=== PATIENT | female | born 1960 | race Caucasian/White ===

== ENCOUNTER 2018-06-30 09:20 | Emergency (ER) | payer BC ==
--- OUTSIDE RECORDS SUMMARY | 2018-06-30 09:52 | XMS REPORT ---
:1960 External Reference #:[id number] [facility] Address [address], [address] [place] [address] Phone [phone] Care Team Providers Name Role Phone Jorge Vasques MD Care Team Information Blow Mold Machine Operator Unavailable Mary Euceda RPAC Primary Care Physician Unavailable Payers Type Date Identification Numbers Payment Provider Subscriber Commercial Policy Number: [id number] [employer] Erik Sanz Sanjay Group Number: [id number] [address] [address] PayID: [id number] [place] [address] Problems Date Description Provider Status Onset: 10/26/2011 Hypothyroidism Mary Euceda RPAC Active Note: ~2011 Onset: 12/26/2014 Asthma without status asthmaticus Mary Euceda RPAC Active Onset: 12/26/2014 Obesity Mary Euceda RPAC Active Onset: 12/26/2014 Allergic rhinitis Mary Euceda RPAC Active Note: Immunoprophylaxis 2017 Onset: 12/26/2014 Degenerative joint disease involving Mary Euceda RPAC Active multiple joints Note: knees, cervical spine Onset: 12/26/2014 Gastroesophageal reflux disease Mary Euceda RPAC Active Onset: 12/26/2014 Malignant neoplasm of female breast Mary Euceda RPAC Active Note: (R) 2014 Onset: 07/28/2015 Bipolar disorder Abdiel Valentino MD Active Onset: 12/01/2017 Irritable bowel syndrome Mary Euceda RPAC Active characterized by alternating bowel habit Onset: 04/02/2018 Obstructive sleep apnea syndrome Mary Euceda RPAC Active Note: auto Cpap Onset: 03/25/2017 Acute bronchitis Kaylin Marcelo M.D. Resolved Resolved: 12/01/2017 Onset: 03/25/2017 Cough Kaylin Marcelo M.D. Resolved Resolved: 12/01/2017 Onset: 03/25/2017 Exacerbation of asthma Kaylin Marcelo M.D. Resolved Resolved: 12/01/2017 Onset: 10/19/2017 Acute sinusitis Kaylin Marcelo M.D. Resolved Resolved: 12/01/2017 Family History Date Family Member(s) Problem(s) Comments Father Prostate Cancer Father Depression Mother Breast Cancer First Sister Endometriosis Social History Type Date Description Comments Education 2014 Currently working on [employer] on line for [employer] degree degree Marital Status Lives With Diet Healthy, Well Balanced Occupation Prevention Rn @ [employer] ADL's/IADL's Independent with all ADL's Cigarette Use Never Smoked Cigarettes ETOH Use Denies alcohol use Smoking Patient has never smoked Daily Caffeine Does Not Consume Caffeine Allergies, Adverse Reactions, Alerts Date Description Reaction Status Severity Comments 12/26/2014 Taxotere SWELLING/PEELING SKIN active 03/28/2016 Docetaxel active 12/26/2014 Neosporin CONTACT ALLERGY active 12/26/2014 Adhesives CONTACT ALLERGY active 04/22/2015 Dog Dander active 04/22/2015 Cat Dander active 03/25/2017 Trees active 03/25/2017 Grass active 03/25/2017 Dust active 05/30/2017 Mold active Medications Medication Date Status Form Strength Qnty SIG Indications Ordering Provider Bupropion HCL ER 11/25 Active Tablets ER 150mg 1 by mouth Unknown (XL) 24HR twice daily ( Terri Dmytryk HOTEL ADMINISTRATIVE ASSISTANT) Trintellix 08/29 Active Tablets 20mg 1 tab po daily (Terri Dmytryk HOTEL ADMINISTRATIVE ASSISTANT) Glucosamine 03/25 Active Capsules 1500Com 1 in the Davian morning 1 Andras, at night M.D. Naproxen 01/31 Active Tablets 500mg 180ta 1 By Mouth Pom bs Twice A Day Amari, With Food M.DVickie Dulera 04/29 Active Aerosol 200-5mcg/ 2 Jovon Ochoa Act inhalations istopher twice a day MD Dockery 04/29 Active Aerosol 108(90Bas 2 [facility]) inhalations istopher mcg/Act every 4 MD hours as needed Flax Seed Oil 04/09 Active Capsules 1000mg 1 by mouth Delroy, every day Rudy Smiley, DO Vitamin B 12/26 Active Tablets 1 by mouth Janeth Jarrell every day Román Hayward Vitamin C 12/26 Active Capsules 500mg one po bid Wesly Román Hayward Levothyroxine 03/20 Active Tablets 75mcg 90tab Take 1 Downing, s Tablet Russ, Daily M.DVickie Lansoprazole 11/[address] 15mg 180ca 1 po bid Wesly ps MD Yesy Probiotic Active Capsules 1 by mouth Unknown / twice daily Vitamin D3 Active Capsules 1000Unit 1 by mouth Unknown /0000 twice daily Levocetirizine Active Tablets 5mg 1 by mouth Jovon Ochoa Dihydrochloride every day istopher PRYOR Mometasone Active Suspension 50mcg/Act 2 sprays Unknown Furoate each nostril Spencer Active Tablets ER 450mg 1 cap by Unknown Carbonate ER /0000 mouth at night (Terri Dmytryk HOTEL ADMINISTRATIVE ASSISTANT) Spencer Active Capsules 300mg 1 tab by Unknown Carbonate /0000 mouth in the am Multivitamin Active Chewtabs 1 by mouth Unknown Gummies Womens /0000 every day Depakote ER 11/25 Hx Tablets ER 250mg take one 24HR pill in Zoryana evening. HOTEL ADMINISTRATIVE ASSISTANT (Terri Dmytryk HOTEL ADMINISTRATIVE ASSISTANT) Amoxicillin 10/19 Hx Tablets 875mg 20tab take 1 J01.90 Davian, s tablet by Andras, - mouth every M.D. 12/01 12 hours for 10 days Depakote ER 06/13 Hx Tablets ER 250mg 45tab take one Downing 24HR s (250mg) Russ, - pill with M.D. 12/01 depakote er 500 mg pill every other day for a total of 750 mg every other day Prednisone 03/25 Hx Tablets 20mg 10tab take 3 J20.9 Davian, s tablets on , - day 1 then M.D. 04/05 2 tablet on day 2 and 3 then 1 tablet on day 4 and 5 and a half tablet and day 6 and 7 . Doxycycline 03/25 Hx Capsules 100mg 20cap 1 cap by J20.9 Davian Monohydrate s mouth twice Andras, - a day for M.D. 04/05 10 Nabumetone 10/05 Hx Tablets 750mg 60tab take one M25.569 Pomjeniffer s tablet by Amari, - mouth twice M.D. 03/18 a day with food Mammogram Order 09/13 Hx (L) Delroy breast..... Rudy Smiley, - ..hx of (r) DO 10/05 mastectomy ........... dx: z85.3 , v76.10 Spencer 01/20 Hx Tablets ER 300mg 180ta 1 tab by Chang, Carbonate ER bs mouth twice Russ, daily M.D. Prevacid 09/[address] 15mg 90cap 1 by mouth Delroy s bid every Rudy Smiley, - day DO 03/18 Ketoconazole 09/24 Hx Cream 2% 60gm for topical B35.9 Delroy use as Rudy Smiley, - needed DO 10/07 Cephalexin 09/24 Hx Tablets 500mg 30tab 1 tab (or R05 Delroy s cap) by Rudy Smiley, - mouth three DO times a day /2015 Furosemide 09/24 Hx Tablets 40mg 5tabs 1 tab by R60.0 Delroy mouth every Rudy Smiley, - day as DO needed edema Depakote ER 06/16 Hx Tablets ER 250mg 100ta take one Delroy 24HR bs (250mg) Rudy Smiley, - pill with DO 10/07 the depakote er 500mg pill every other day for a total of 750mg every other day. Nasonex 04/29 Hx Suspension 50mcg/Act 2 sprays to Unknown (b) nares - every day 12/01 Xyzal 04/29 Hx Tablets 5mg 1 tab by mouth every - day as 03/18 needed allergies Zolpidem 04/22 Hx Tablets 5mg 30tab take one Chicho, Tartrate s pill each Tadeus - night for E., 03/28 sleep as needed Flax Seed Oil 12/26 Hx Capsules 1000mg 1 cap by Wesly, mouth every Yesy - day , M.D. 12/26 Glucosamine 12/26 Hx Tablets 2 tabs by Wesly, Chondroitin mouth every Yesy Complex day , M.D. Proair HFA 12/26 Hx Aerosol 108(90Bas 1- Wesly e) inhalations Yesy - mcg/Act every 4 , M.D. 09/ hours needed Vitamin D 12/26 Hx Tablets 1000Unit one tab po Wesly, (Cholecalciferol daily Yesy ) - , M.D. 01/20 Zinc 12/26 Hx Tablets 50mg 1 tab by Wesly, mouth every Yesy - day , M.D. 01/20 Magnesium 12/26 Hx Tablets 250mg one tab by Wesly, mouth every Yesy - day , M.D. 01/20 Multivital 12/26 Hx Tablets 1 by mouth Wesly, every day Yesy - M.DVickie 04/09 Ciclodan Cream 11/25 Hx Kit 0.77% 90uni thin layer Wesly, ts to foot Yesy - lesions , 12/26 twice a day /2014 Zyban 04/08 Hx Tablets ER 150mg 60tab take 1 Wesly 12HR s tablet by Yesy - mouth twice , 12/26 a day /2014 Ventolin HFA 03/26 Hx Aerosol 108mcg/Ac 1unit 1-2 Wesly t s inhalations Yesy - every 4 , 12/26 hours needed Dulera 12/28 Hx Aerosol 100-5mcg/ 13gm 2 Wesly Act inhalations Yesy - twice a day , M.Nisha 05/07 Albuterol 10/21 Hx Tablets 4mg 180ta Take 1 Wesly bs Tablet Yesy - Twice Daily , 05/07 Spencer Hx Capsules 150mg 1 tab po in Unknown Carbonate /0000 am 1/2 tab - in pm 12/26 Calcium 600+D Hx Tablets 600-800mg Wesly, / -Unit Yesy - MD 01/20 Spencer Hx Tablets ER 450mg 90tab 1 tab by Chicho Carbonate ER /0000 s mouth in in Tadeus - the morning MD Sherice 01/20 and 08/30 tab /2015 by mouth every at night Quetiapine Hx Tablets 50mg 1 by mouth Unknown Fumarate one hour - prior to 04/21 bedtime Azithromycin Hx Tablets 250mg 5tabs one tab by Wesly, /0000 mouth every Yesy - day ( Román peacock 04/21 treatment to 10 days total) Fluocinonide Hx Ointment 0.05% Thin layer Unknown / to foot - rash bid 01/20 Clemastine Hx Tablets 2.68mg 180ta Take 1 Delroy, Fumarate / bs Tablet By Rudy Smiley, - Mouth Twice DO 05/07 Terbinafine HCL Hx Tablets 250mg 1 tab by Unknown /0000 mouth every - day for 09/24 toenail /2016 fungus Mucinex Hx Tablets ER 600mg one tab by Unknown /0000 12HR mouth twice - a day as 09/24 needed /2016 nasal stuffiness Hydrocodone-Acet Hx Tablets 10-325mg Unknown aminophen / - 01/31 Tizanidine HCL 00 Hx Tablets 4mg Unknown / - 03/18 SF 5000 Plus Hx Cream 1.1% Unknown - 03/18 Minocycline HCL 00/00 Hx Capsules 100mg Yared, / MD Vito Bupropion HCL ER 0000 Hx Tablets ER 150mg 180ta take 1 Downing, (SR) /0000 12HR bs tablet by Russ, - mouth two M.D. 12/01 times daily /2017 Minocycline HCL Hx Capsules 100mg 1 PO Daily Yared, /0000 Kane Padron MD 10/19 Sertraline HCL Hx Tablets 25mg Unknown /0000 - 10/19 Depakote ER Hx Tablets ER 500mg 90tab take 500mg Downing, /0000 24HR s alternating Russ, - with 750mg M.D. 12/01 every other 2017. Medications Administered in Office Medication Date Status Form Strength Qnty SIG Indications Ordering Provider Depomedrol 80 Administered Injection Vela, mg 018 Kezia S., [facility] Depomedrol 80 Administered Injection Vela, mg 018 Kezia S., [facility] Depomedrol 80 Administered Injection Vela, mg 018 Kezia S., [facility] Depomedrol 80 Administered Injection Vela, mg 018 Kezia S., [facility] Depomedrol 80 Administered Injection Vela, mg 018 Kezia S., [facility] Depomedrol 80 Administered Injection Vela, mg 018 Kezia S., [facility] Depomedrol 80 Administered Injection Vela, mg 017 Kezia S., [facility] Depomedrol 80 Administered Injection Vela, mg 017 Kezia S., [facility] Depomedrol 80 Administered Injection Vela, mg 017 Kezia S., [facility] Depomedrol 80 Administered Injection Vela, mg 017 Kezia S., [facility] Depomedrol 80 Administered Injection Vela, mg 017 Kezia S., [facility] Depomedrol 80 Administered Injection Vela, mg 017 Kezia S., [facility] Immunizations CPT Code Status Date Vaccine Reaction Lot # [id number] Given 06/20/2018 Influenza Virus Vaccine, Quadrivalent, 36 [id number] Mos+, .5ML 37115 Given 05/30/2017 Influenza Virus Vaccine Quadrivalent Iiv4 [place] [id number] [address] Given 03/26/2014 Pneumovax Injection 14090 Given 07/20/2013 flu vaccination 37756 Given 07/20/2013 flu vaccination 10913 Given 05/13/2010 Tetnus Injection 78226 Given 02/13/2008 Pneumovax Injection 47557 Given 03/06/1998 Tetnus Injection 43296 Given 05/30/1992 MMR Vaccine, Live, For Subcutaneous Use 55178 Given 02/20/1992 MMR Vaccine, Live, For Subcutaneous Use Vital Signs Date Vital Result Comment 06/20/2018 BP Systolic 123 mmHg BP Diastolic 85 mmHg Body Temperature 98.3 F Heart Rate 83 /min Respiratory Rate 20 /min Height 65 inches 5'5" Weight 299.50 lb BMI (Body Mass Index) 49.8 kg/m2 BSA (Body Surface Area) 2.35 m2 [place] body weight in kilograms 57 O2 % BldC Oximetry 94 % 05/25/2018 BP Systolic Sitting Left Arm 132 mmHg BP Diastolic Sitting Left Arm 88 mmHg Heart Rate 85 /min Respiratory Rate 16 /min Height 65 inches 5'5" Weight 305.00 lb BMI (Body Mass Index) 50.7 kg/m2 BSA (Body Surface Area) 2.37 m2 [place] body weight in kilograms 57 O2 % BldC Oximetry 94 % 05/12/2018 BP Systolic 126 mmHg BP Diastolic 83 mmHg Body Temperature 98.0 F Height 65 inches 5'5" Weight 304.00 lb BMI (Body Mass Index) 50.6 kg/m2 BSA (Body Surface Area) 2.36 m2 [place] body weight in kilograms 57 O2 % BldC Oximetry 96 % Pain Level 1 04/03/2018 BP Systolic Sitting Left Arm 128 mmHg BP Diastolic Sitting Left Arm 80 mmHg Heart Rate 84 /min Respiratory Rate 18 /min Height 65 inches 5'5" Weight 303.00 lb BMI (Body Mass Index) 50.4 kg/m2 BSA (Body Surface Area) 2.36 m2 [place] body weight in kilograms 57 O2 % BldC Oximetry 96 % Room air 02/09/2018 BP Systolic Sitting Left Arm 148 mmHg BP Diastolic Sitting Left Arm 89 mmHg Body Temperature 98.3 F Heart Rate 85 /min Respiratory Rate 19 /min Height 65 inches 5'5" Weight 315.00 lb BMI (Body Mass Index) 52.4 kg/m2 BSA (Body Surface Area) 2.40 m2 [place] body weight in kilograms 57 O2 % BldC Oximetry 94 % 12/01/2017 BP Systolic Sitting Left Arm 146 mmHg BP Diastolic Sitting Left Arm 86 mmHg Heart Rate 78 /min Respiratory Rate 18 /min Height 65 inches 5'5" Weight 306.00 lb BMI (Body Mass Index) 50.9 kg/m2 BSA (Body Surface Area) 2.37 m2 [place] body weight in kilograms 57 O2 % BldC Oximetry 98 % ra 11/09/2017 BP Systolic 128 mmHg BP Diastolic 83 mmHg Body Temperature 98.2 F Heart Rate 76 /min Respiratory Rate 16 /min Height 65 inches 5'5" Weight 302.00 lb BMI (Body Mass Index) 50.2 kg/m2 BSA (Body Surface Area) 2.36 m2 [place] body weight in kilograms 57 Pain Level 2 10/19/2017 BP Systolic 150 mmHg BP Diastolic 90 mmHg Body Temperature 97.9 F Heart Rate 77 /min Respiratory Rate 16 /min Height 65 inches 5'5" [place] body weight in kilograms 57 O2 % BldC Oximetry 97 % 08/09/2017 BP Systolic Sitting Left Arm 148 mmHg BP Diastolic Sitting Left Arm 96 mmHg Heart Rate 80 /min Height 65 inches 5'5" Weight 314.00 lb BMI (Body Mass Index) 52.2 kg/m2 BSA (Body Surface Area) 2.40 m2 [place] body weight in kilograms 57 05/30/2017 BP Systolic Sitting Left Arm 143 mmHg BP Diastolic Sitting Left Arm 96 mmHg Heart Rate 76 /min Respiratory Rate 16 /min Height 65 inches 5'5" Weight 311.38 lb BMI (Body Mass Index) 51.8 kg/m2 BSA (Body Surface Area) 2.39 m2 [place] body weight in kilograms 57 05/23/2017 BP Systolic Sitting Left Arm 122 mmHg BP Diastolic Sitting Left Arm 84 mmHg Heart Rate 81 /min Respiratory Rate 18 /min Height 65 inches 5'5" Weight 307.00 lb BMI (Body Mass Index) 51.1 kg/m2 BSA (Body Surface Area) 2.37 m2 [place] body weight in kilograms 57 O2 % BldC Oximetry 96 % 04/19/2017 BP Systolic Sitting Left Arm 138 mmHg BP Diastolic Sitting Left Arm 78 mmHg Heart Rate 96 /min Respiratory Rate 18 /min Height 65 inches 5'5" Weight 308.00 lb BMI (Body Mass Index) 51.2 kg/m2 BSA (Body Surface Area) 2.38 m2 [place] body weight in kilograms 57 O2 % BldC Oximetry 98 % 04/19/2017 Heart Rate 96 /min Respiratory Rate 18 /min Height 65 inches 5'5" Weight 308.00 lb BMI (Body Mass Index) 51.2 kg/m2 BSA (Body Surface Area) 2.38 m2 [place] body weight in kilograms 57 O2 % BldC Oximetry 98 % 03/25/2017 BP Systolic Sitting Right Arm 126 mmHg BP Diastolic Sitting Right Arm 83 mmHg Body Temperature 97.6 F Heart Rate 79 /min Respiratory Rate 24 /min Height 65 inches 5'5" Weight 305.00 lb BMI (Body Mass Index) 50.7 kg/m2 BSA (Body Surface Area) 2.37 m2 [place] body weight in kilograms 57 O2 % BldC Oximetry 97 % ra 03/18/2017 BP Systolic 137 mmHg BP Diastolic 90 mmHg Body Temperature 98.1 F Heart Rate 91 /min Respiratory Rate 16 /min Height 65 inches 5'5" Weight 303.00 lb BMI (Body Mass Index) 50.4 kg/m2 BSA (Body Surface Area) 2.36 m2 [place] body weight in kilograms 57 O2 % BldC Oximetry 95 % 10/05/2016 BP Systolic Sitting Right Arm 128 mmHg BP Diastolic Sitting Right Arm 78 mmHg Height 65 inches 5'5" Weight 305.25 lb BMI (Body Mass Index) 50.8 kg/m2 BSA (Body Surface Area) 2.37 m2 04/26/2016 BP Systolic Sitting Right Arm 132 mmHg BP Diastolic Sitting Right Arm 74 mmHg Height 65 inches 5'5" Weight 299.50 lb BMI (Body Mass Index) 49.8 kg/m2 BSA (Body Surface Area) 2.35 m2 04/13/2016 BP Systolic Sitting Right Arm 138 mmHg BP Diastolic Sitting Right Arm 80 mmHg Height 65 inches 5'5" Weight 305.50 lb BMI (Body Mass Index) 50.8 kg/m2 BSA (Body Surface Area) 2.37 m2 04/01/2016 BP Systolic Sitting Right Arm 134 mmHg BP Diastolic Sitting Right Arm 76 mmHg Heart Rate 86 /min Height 65 inches 5'5" Weight 302.25 lb BMI (Body Mass Index) 50.3 kg/m2 BSA (Body Surface Area) 2.36 m2 [place] body weight in kilograms 57 O2 % BldC Oximetry 99 % 01/21/2016 BP Systolic 144 mmHg BP Diastolic 86 mmHg Body Temperature 98.5 F Heart Rate 81 /min Respiratory Rate 20 /min Weight 306.00 lb O2 % BldC Oximetry 96 % 10/27/2015 BP Systolic Sitting Left Arm 118 mmHg BP Diastolic Sitting Left Arm 82 mmHg Heart Rate 84 /min Weight 307.12 lb 09/24/2015 BP Systolic Sitting Left Arm 130 mmHg BP Diastolic Sitting Left Arm 74 mmHg Body Temperature 98.5 F Height 65 inches 5'5" Weight 302.50 lb BMI (Body Mass Index) 50.3 kg/m2 BSA (Body Surface Area) 2.36 m2 07/28/2015 BP Systolic 130 mmHg BP Diastolic 72 mmHg Heart Rate 93 /min Respiratory Rate 18 /min Height 65 inches 5'5" Weight 304.00 lb BMI (Body Mass Index) 50.6 kg/m2 BSA (Body Surface Area) 2.36 m2 O2 % BldC Oximetry 98 % Ra 05/28/2015 BP Systolic 122 mmHg BP Diastolic 78 mmHg Height 65 inches 5'5" Weight 296.00 lb BMI (Body Mass Index) 49.3 kg/m2 BSA (Body Surface Area) 2.34 m2 05/21/2015 Height 65 inches 5'5" Weight 295.00 lb BMI (Body Mass Index) 49.1 kg/m2 BSA (Body Surface Area) 2.33 m2 04/30/2015 Height 65 inches 5'5" Weight 297.00 lb BMI (Body Mass Index) 49.4 kg/m2 BSA (Body Surface Area) 2.34 m2 04/22/2015 BP Systolic 138 mmHg BP Diastolic 78 mmHg Heart Rate 87 /min Height 65 inches 5'5" Weight 304.00 lb BMI (Body Mass Index) 50.6 kg/m2 BSA (Body Surface Area) 2.36 m2 O2 % BldC Oximetry 96 % ra 04/09/2015 BP Systolic 132 mmHg BP Diastolic 74 mmHg Height 65 inches 5'5" Weight 306.00 lb BMI (Body Mass Index) 50.9 kg/m2 BSA (Body Surface Area) 2.37 m2 12/26/2014 BP Systolic Sitting Left Arm 148 mmHg BP Diastolic Sitting Left Arm 80 mmHg Body Temperature 98.9 F Heart Rate 76 /min Height 65 inches 5'5" Weight 283.00 lb BMI (Body Mass Index) 47.1 kg/m2 BSA (Body Surface Area) 2.29 m2 11/26/2014 Height 65 inches 5'5" Weight 286.00 lb 11/25/2014 BP Systolic 134 mmHg BP Diastolic 70 mmHg Height 65 inches 5'5" Weight 290.00 lb 10/29/2014 Height 65 inches 5'5" Weight 283.00 lb 10/15/2014 Height 65 inches 5'5" Weight 279.00 lb 10/09/2014 Height 65 inches 5'5" Weight 278.00 lb 09/25/2014 BP Systolic 126 mmHg BP Diastolic 76 mmHg Weight 282.00 lb 06/13/2014 BP Systolic 128 mmHg BP Diastolic 76 mmHg Body Temperature 98.2 F Weight 263.00 lb 03/26/2014 BP Systolic 124 mmHg BP Diastolic 80 mmHg Height 65 inches 5'5" Weight 262.00 lb 01/04/2014 BP Systolic 122 mmHg BP Diastolic 78 mmHg Body Temperature 97.9 F Height 65 inches 5'5" Weight 262.00 lb 08/01/2013 BP Systolic 112 mmHg BP Diastolic 68 mmHg Height 65.5 inches 5'5.50" Weight 260.00 lb 07/20/2013 BP Systolic 118 mmHg BP Diastolic 62 mmHg Height 65.5 inches 5'5.50" Weight 260.00 lb 03/20/2013 BP Systolic 110 mmHg BP Diastolic 74 mmHg Height 65.5 inches 5'5.50" Weight 236.00 lb 01/26/2013 BP Systolic 118 mmHg BP Diastolic 70 mmHg Height 65 inches 5'5" Weight 229.00 lb 12/15/2012 BP Systolic 114 mmHg BP Diastolic 62 mmHg Height 65 inches 5'5" Weight 237.00 lb 12/01/2012 BP Systolic 116 mmHg BP Diastolic 64 mmHg Body Temperature 97.8 F Height 65 inches 5'5" Weight 268.00 lb 03/07/2012 BP Systolic 118 mmHg BP Diastolic 70 mmHg Heart Rate 78 /min Respiratory Rate 18 /min Height 65 inches 5'5" Weight 265.00 lb 02/25/2012 BP Systolic 120 mmHg BP Diastolic 80 mmHg Body Temperature 97.8 F Height 65 inches 5'5" Weight 264.00 lb 02/18/2012 BP Systolic 110 mmHg BP Diastolic 64 mmHg Body Temperature 98.2 F Height 65 inches 5'5" Weight 265.00 lb 12/07/2011 BP Systolic 118 mmHg BP Diastolic 70 mmHg Body Temperature 98.1 F Height 66 inches 5'6" Weight 257.00 lb 12/01/2011 BP Systolic 124 mmHg BP Diastolic 68 mmHg Body Temperature 98.4 F Height 66 inches 5'6" Weight 253.00 lb 10/26/2011 BP Systolic 124 mmHg BP Diastolic 74 mmHg Height 65.6 inches 5'5.60" Weight 255.00 lb Results Test Date Test Result H/L Range Note TSH Reflex FT4 And/Or 12/01/2017 Thyroid Stim Hormone 2.22 uIU/mL 0.30- 4.20 1 FT3 Reflex add FT3? Y 1 Reflex add FT4? Y 1 FSH 12/01/2017 FSH 33.7 mIU/mL 1, 2 Reflex add FT3? Y 1 Reflex add FT4? Y 1 CBS W/Automated Diff 12/01/2017 White Blood Count 6.4 K/uL 3.1-10.7 1 Red Blood Count 4.70 M/uL 3.90-5.40 1 Hemoglobin 14.3 gm/dL 11.6-15.8 1 Hematocrit 44.1 % 36.0-46.1 1 Mean Cell Volume 93.8 fl 80.9-99.0 1 Mean Corpuscular HGB 30.4 pg 25.9-32.7 1 Mean Corpuscular HGB Conc 32.4 g/dL 30.8-34.3 1 Platelet Count 261 K/uL 155-360 1 Red Cell Distri Width SD 45.1 fl 3-47 1 Red Cell Distri Width %CV 13.4 % 11.7-14.4 1 Mean Platelet Volume 9.8 fL 8.9-12.4 1 Neut% 71.9 % 40.4-72.8 1 Lymph % 18.7 % Low 20.0-42.0 1 Hardy % 5.0 % 4.3-13.2 1 Eo% 3.9 % 0.0-6.6 1 Bas% 0.5 % 0.0-1.1 1 Neut# 4.56 K/uL 1.8-7.0 1 Lymph # 1.19 K/uL 1.0-4.0 1 Hardy # 0.32 K/uL 0.3-0.9 1 Eos # 0.25 K/uL 0.0-0.5 1 Baso # 0.03 K/uL 0.0-0.1 1 Comprehensive Metabolic Panel 12/01/2017 Glucose 89 mg/dL 74-106 1 BUN 17 mg/dL 7-18 1 Creatinine 0.9 mg/dL 0.6-1.3 1 Glom Filtration Rate, Estimate >60 mL/min >60 1 If >60 mL/min >60 1, 3 BUN/Creat 18.8 ratio 1 Sodium 143 mmol/L 136-145 1 Potassium 4.9 mmol/L 3.5-5.1 1 Chloride 106 mmol/L 98-107 1 Carbon Dioxide 33 mmol/L High 21-32 1 Anion Gap 4 mEq/L Low 8-16 1 Calcium 9.7 mg/dL 8.5-10.1 1 Total Protein 6.9 g/dL 6.4-8.2 1 Albumin 4.1 g/dL 3.4-5.0 1 Globulin 2.8 g/dL 1.9-4.3 1 Alb/Glob 1.5 ratio 1 Bilirubin,Total 0.3 mg/dL 0.2-1.0 1 Sgot/Ast 21 U/L 15-37 1 SGPT/Alt 38 U/L 12-78 1 Alkaline Phosphatase 89 U/L 45-117 1 Reflex add FT3? Y 1 Reflex add FT4? Y 1 Laboratory test finding 05/30/2017 Thyroid Stim Hormone 2.52 uIU/mL 0.30- 4.20 4 Comprehensive Metabolic 05/30/2017 Glucose 83 mg/dL 74-106 4 Panel BUN 13 mg/dL 7-18 4 Creatinine 0.9 mg/dL 0.6-1.3 4 Glom Filtration Rate, Estimate >60 mL/min >60 4 If >60 mL/min >60 4, 5 BUN/Creat 14.4 ratio 4 Sodium 144 mmol/L 136-145 4 Potassium 4.2 mmol/L 3.5-5.1 4 Chloride 108 mmol/L High 98-107 4 Carbon Dioxide 30 mmol/L 21-32 4 Anion Gap 6 mEq/L Low 8-16 4 Calcium 9.8 mg/dL 8.5-10.1 4 Total Protein 6.7 g/dL 6.4-8.2 4 Albumin 4.1 g/dL 3.4-5.0 4 Globulin 2.6 g/dL 1.9-4.3 4 Alb/Glob 1.6 ratio 4 Bilirubin,Total 0.5 mg/dL 0.2-1.0 4 Sgot/Ast 14 U/L Low 15-37 4, 6 SGPT/Alt 34 U/L 12-78 4 Alkaline Phosphatase 77 U/L 45-117 4 CBS W/Automated Diff 05/30/2017 White Blood Count 5.1 K/uL 3.1-10.7 4 Red Blood Count 4.19 M/uL 3.90-5.40 4 Hemoglobin 12.9 gm/dL 11.6-15.8 4 Hematocrit 39.5 % 36.0-46.1 4 Mean Cell Volume 94.3 fl 80.9-99.0 4 Mean Corpuscular HGB 30.8 pg 25.9-32.7 4 Mean Corpuscular HGB Conc 32.7 g/dL 30.8-34.3 4 Platelet Count 217 K/uL 150-400 4 Red Cell Distri Width SD 45.4 fl 3-47 4 Red Cell Distri Width %CV 13.6 % 11.7-14.4 4 Mean Platelet Volume 10.7 fL 8.9-12.4 4 Neut% 67.7 % 40.4-72.8 4 Lymph % 21.1 % 20.0-42.0 4 Hardy % 5.9 % 4.3-13.2 4 Eo% 4.9 % 0.0-6.6 4 Bas% 0.4 % 0.0-1.1 4 Neut# 3.44 K/uL 1.8-7.0 4 Lymph # 1.07 K/uL 1.0-4.0 4 Hardy # 0.30 K/uL 0.3-0.9 4 Eos # 0.25 K/uL 0.0-0.5 4 Baso # 0.02 K/uL 0.0-0.1 4 Laboratory test 05/30/2017 Vitamin D,25-Hydroxy 43.7 ng/mL 30.0-100.0 4 , 7 finding Cytopathology 04/13/2016 Cytopath C/V Auto Results on file 8, 9 Cervix/Vagina Fluid @[facility] Pat Id: [id number] @[facility] Req #: [id number] 8 Cyto Source: Cervix/Endocx 8 Cyto HPV: TP/ASCUS, rfx HP <SEE NOTE> 8, 10 @LMP Date: 2004 8 Fungal Culture With 04/13/2016 Fungal Culture; Other Fungus (Mycology <SEE 11 Smear Sources NOTE> @[facility] Pat Id: [id number] @[facility] Req #: [id number] Fungal Fluorochrome Stain 04/13/2016 Fungal Fluorochrome Stain Final report 12 @[facility] Pat Id: [id number] @[facility] Req #: [id number] Glycohemoglobin A1c 04/01/2016 Glycohemoglobin (A1c) 5.5 % 4.2-6.3 13 eAG 111 mg/dL Laboratory test finding 04/01/2016 Vitamin D,25-Hydroxy 32.5 ng/mL 30.0- 100.0 14 Comprehensive Metabolic 03/28/2016 Glucose 93 mg/dL 74-106 Panel BUN 8 mg/dL 7-18 Creatinine 1.1 mg/dL 0.6-1.3 Glom Filtration Rate, Estimate 55 mL/min >60 If >60 mL/min >60 15 BUN/Creat 7.2 ratio Sodium 143 mmol/L 136-145 Potassium 3.7 mmol/L 3.5-5.1 Chloride 107 mmol/L 98-107 Carbon Dioxide 28 mmol/L 21-32 Anion Gap 8 mEq/L 8-16 Calcium 9.3 mg/dL 8.5-10.1 Total Protein 7.2 g/dL 6.4-8.2 Albumin 3.9 g/dL 3.4-5.0 Globulin 3.3 g/dL 1.9-4.3 Alb/Glob 1.2 ratio Bilirubin,Total 0.4 mg/dL 0.2-1.0 Sgot/Ast 15 U/L 15-37 SGPT/Alt 39 U/L 12-78 Alkaline Phosphatase 86 U/L 45-117 CBC W/Automated Diff 03/28/2016 White Blood Count 5.5 K/uL 3.1-10.7 Red Blood Count 4.64 M/uL 3.90-5.40 Hemoglobin 14.2 gm/dL 11.6-15.8 Hematocrit 43.0 % 36.0-46.1 Mean Cell Volume 92.7 fl 80.9-99.0 Mean Corpuscular HGB 30.6 pg 25.9-32.7 Mean Corpuscular HGB Conc 33.0 g/dL 30.8-34.3 Platelet Count 238 K/uL 155-360 Red Cell Distri Width SD 44.0 fl 3-47 Red Cell Distri Width %CV 13.2 % 11.7-14.4 Mean Platelet Volume 10.4 fL 8.9-12.4 Neut% 65.5 % 40.4-72.8 Lymph % 24.2 % 17.0-46.1 Hardy % 6.2 % 4.3-13.2 Eo% 3.5 % 0.0-6.6 Bas% 0.6 % 0.0-1.1 Neut# 3.57 K/uL 1.8-7.0 Lymph # 1.32 K/uL Low 1.8-7.0 Hardy # 0.34 K/uL 0.3-0.9 Eos # 0.19 K/uL 0.0-0.5 Baso # 0.03 K/uL 0.0-0.1 Laboratory test finding 03/28/2016 Slide Review See Note 16 Laboratory test finding 03/28/2016 Spencer 0.60 mmol/L 0.60-1.20 Valproic Acid 39.9 ug/mL Low 50.0-100.0 Laboratory test finding 03/28/2016 Basophils # (Auto) 0.03 0.0-0.1 Basophils (%) (Auto) 0.6 0.0-1.1 Carbon Dioxide Level 28 21-32 Eosinophils # (Auto) 0.19 0.0-0.5 Eosinophils (%) (Auto) 3.5 0.0-6.6 Estimated GFR (Non- 55 >60 Lymphocytes # (Auto) 1.32 Low 1.8-7.0 Lymphocytes (%) (Auto) 24.2 17.0-46.1 Manual Slide Review (Hematology) See Note 17 Monocytes # (Auto) 0.34 0.3-0.9 Monocytes (%) (Auto) 6.2 4.3-13.2 Neutrophils # (Auto) 3.57 1.8-7.0 Neutrophils (%) (Auto) 65.5 40.4-72.8 RDW Coefficient of Variation 13.2 11.7-14.4 Red Cell Distribution Width 44.0 3-47 Sodium Level 143 136-145 Laboratory test finding 02/04/2016 Spencer 0.58 mmol/L Low 0.60-1.20 BMP Basic Metabolic 02/04/2016 Basic Metabolic Panel (SEE NOTE) 18 Panel (8) Glucose 99 mg/dL 74-106 BUN 15 mg/dL 7-18 Creatinine 1.1 mg/dL 0.6-1.3 Glom Filtration Rate, Estimate 55 mL/min >60 If >60 mL/min >60 19 BUN/Creat 13.6 ratio Sodium 143 mmol/L 136-145 Potassium 3.9 mmol/L 3.5-5.1 Chloride 106 mmol/L 98-107 Carbon Dioxide 30 mmol/L 21-32 Anion Gap 7 mEq/L Low 8-16 Calcium 9.0 mg/dL 8.5-10.1 Laboratory test finding 02/04/2016 Thyroid Stim Hormone 2.05 uIU/mL 0.30- 4.20 Laboratory test finding 02/04/2016 Carbon Dioxide Level 30 21-32 Estimated GFR (Non- 55 >60 Sodium Level 143 136-145 Laboratory test finding 04/29/2015 Valproic Acid 33.8 ug/mL Low 50.0- 100.0 Laboratory test finding 12/26/2014 BUN 16 mg/dL 7-18 Estimated GFR 12/26/2014 Creatinine 1.2 mg/dL 0.6-1.3 Glom Filtration Rate, Estimate 50 mL/min >60 If 60 mL/min >60 20 Laboratory test finding 12/26/2014 Thyroid Stim Hormone 2.76 uIU/mL 0.36- 3.74 Spencer 0.72 mmol/L 0.60-1.20 Liver Function Tests 12/26/2014 Total Protein 7.4 g/dL 6.4-8.2 Albumin 3.9 g/dL 3.4-5.0 Globulin 3.5 g/dL 1.9-4.3 Alb/Glob 1.1 ratio Bilirubin,Total 0.3 mg/dL 0.2-1.0 Bilirubin,Direct < 0.1 mg/dL 0.0-0.2 Bilirubin,Indirect 0.2 mg/dL 0.0-0.9 Sgot/Ast 17 U/L 15-37 SGPT/Alt 30 U/L 12-78 Alkaline Phosphatase 80 U/L 45-117 Laboratory test finding 09/25/2014 Vitamin D,1,25 79.3 pg/mL High 10.0- 75.0 21 Dihydroxy Laboratory test finding 06/06/2014 Bas% 0.3 % 0.0-1.1 Baso # 0.02 K/uL 0.0-0.1 Eo% 1.2 % 0.0-6.6 Eos # 0.08 K/uL 0.0-0.5 Hematocrit 40.3 % 36.0-46.1 Hemoglobin 13.2 gm/dL 11.6-15.8 Spencer 0.75 mmol/L 0.60-1.20 Lymph # 0.99 K/uL 0.8-3.4 Lymph % 15.1 % Low 17.0-46.1 Mean Cell Volume 93.5 fl 80.9-99.0 Mean Corpuscular HGB 30.6 pg 25.9-32.7 Mean Corpuscular HGB Conc 32.8 g/dL 30.8-34.3 Mean Platelet Volume 9.2 fL 8.9-12.4 Hardy # 0.45 K/uL 0.3-0.9 Hardy % 6.9 % 4.3-13.2 Neut# 5.00 K/uL 1.0-7.0 Neut% 76.5 % High 40.4-72.8 Platelet Count 182 K/uL 155-360 Red Blood Count 4.31 M/uL 3.90-5.40 Red Cell Distri Width %CV 12.8 % 11.7-14.4 Red Cell Distri Width SD 42.8 fl 3-47 Valproic Acid 72.1 ug/mL 50.0-100.0 White Blood Count 6.5 K/uL 3.1-10.7 Comprehensive Metabolic Panel 06/06/2014 Alb/Glob 1.0 ratio Albumin 3.5 g/dL 3.4-5.0 Alkaline Phosphatase 75 U/L 45-117 Anion Gap 10 mEq/L 8-16 BUN 9 mg/dL 7-18 BUN/Creat 10.0 ratio Bilirubin,Total 0.5 mg/dL 0.2-1.0 Calcium 9.6 mg/dL 8.5-10.1 Carbon Dioxide 30 mmol/L 21-32 Chloride 104 mmol/L 98-107 Creatinine 0.9 mg/dL 0.6-1.3 Globulin 3.5 g/dL 1.9-4.3 Glom Filtration Rate, Estimate >60 mL/min >60 Glucose 86 mg/dL 74-106 If >60 mL/min >60 22 Potassium 4.1 mmol/L 3.5-5.1 SGPT/Alt 24 U/L 12-78 Sgot/Ast 12 U/L Low 15-37 Sodium 140 mmol/L 136-145 Total Protein 7.0 g/dL 6.4-8.2 Laboratory test finding 03/26/2014 BUN 9 mg/dL 5-23 23 Creatinine 1.2 mg/dL 0.5-1.4 24 Free T4 1.15 ng/dL 0.71-1.85 25 Glucose 86 mg/dL 76-115 26 Spencer 0.63 mmol/L 0.60-1.20 27 Thyroid Stim Hormone 2.44 uIU/mL 0.49-4.67 28 Valproic Acid 29.1 ug/mL Low 50.0-100.0 29 CBC 03/26/2014 Hematocrit 40.7 % 36.0-46.1 Hemoglobin 13.8 gm/dL 11.6-15.8 Mean Cell Volume 94.9 fl 80.9-99.0 Mean Corpuscular HGB 32.2 pg 25.9-32.7 Mean Corpuscular HGB Conc 33.9 g/dL 30.8-34.3 Mean Platelet Volume 10.3 fL 8.9-12.4 Platelet Count 216 K/uL 155-360 Red Blood Count 4.29 M/uL 3.90-5.40 Red Cell Distri Width %CV 13.2 % 11.7-14.4 White Blood Count 4.6 K/uL 3.1-10.7 LDL Cholesterol Profile 03/26/2014 Cholesterol 146 mg/dL 120-200 HDL Cholesterol 66 mg/dL 2983 LDL-Cholesterol 47 mg/dL Low 62-185 Triglycerides 167 mg/dL 16-231 Liver Function Tests 03/26/2014 Alb/Glob 1.2 ratio Albumin 3.8 g/dL 3.5-5.0 Alkaline Phosphatase 68 U/L 50-136 Bilirubin,Direct 0.1 mg/dL 0.1-0.4 Bilirubin,Indirect 0.4 mg/dL 0.0-0.9 Bilirubin,Total 0.5 mg/dL 0.2-1.2 Globulin 3.1 g/dL 1.9-4.3 SGPT/Alt 25 U/L Low 30-65 Sgot/Ast 13 U/L Low 16-40 Total Protein 6.9 g/dL 6.3-8.0 Laboratory test finding 03/26/2014 Cytology Pap See Note 30 Laboratory test finding 03/20/2013 Free T4 0.91 ng/mL 0.61-1.24 TSH (Thyroid Stimulating Horm) 1.79 miu/mL 0.34-5.60 Laboratory test finding 03/20/2013 Cytology Pap See Note 31 Laboratory test finding 01/25/2013 Free T4 0.81 ng/mL 0.61-1.24 TSH (Thyroid Stimulating Horm) 2.43 miu/mL 0.34-5.60 Basic Metabolic Panel 12/15/2012 Anion Gap 10.0 mmol/L 2-11 BUN/Creatinine Ratio 3.0 Low 8-20 Blood Urea Nitrogen 3 mg/dL Low 6-24 Calcium 10.0 mg/dL High 8.1-9.9 Chloride 105 mmol/L 101-111 Co2 Carbon Dioxide 30.0 mmol/L 22-32 Creatinine 1.00 mg/dL 0.50-1.40 Egfr 74.9 >60 32 Egfr Non- 58.2 >60 Glucose 81 mg/dL 70-100 Potassium 4.2 mmol/L 3.5-5.0 Sodium 145 mmol/L 133-145 Laboratory test finding 12/01/2012 Hemoglobin A1c 4.1 % Less than 6.0 33 CBC Auto Diff 12/01/2012 Abs Basophils 0 10^3/uL 0-0.2 Abs Eosinophils 0.2 10^3/uL 0-0.6 Abs Lymphocytes 0.8 10^3/uL Low 1.0-4.8 Abs Monocytes 0.3 10^3/uL 0-0.8 Abs Neutrophils 3.6 10^3/uL 1.5-7.7 Abs Nucleated RBC 0 10^3/uL Basophil % 0.5 % 0-2 Eosinophil % 3.9 % 0-6 Granulocyte % 73.3 % 38-83 Hematocrit 42 % 35-47 Hemoglobin 13.9 g/dL 12.0-16.0 Lymphocyte % 17.1 % Low 25-47 Mean Corpuscular HGB Conc 33 g/dL 31-36 Mean Corpuscular Hemoglobin 31 pg 27-31 Mean Corpuscular Volume 94 fL 80-97 Mean Platelet Volume 9 um3 7.4-10.4 Monocyte % 5.2 % 1-9 Nucleated Red Blood Cells % 0.1 Platelet Count 206 10^3/uL 150-450 Red Blood Count 4.46 10^6/uL 4.0-5.4 Red Cell Distribution Width 14 % 10.5-15 White Blood Count 4.9 10^3/uL 4.8-10.8 Urine Culture And 12/01/2012 Urine Culture (See Note) 34 Sensitivities Lipid Profile (Trig/Chol/HDL) 12/01/2012 Cholesterol 140 mg/dL Less than 200 Cholesterol/HDL Ratio 2.5 Average 1-4.44 HDL Cholesterol 56 mg/dL 40-60 35 LDL Cholesterol 66.2 mg/dL Less Than 100 36 Triglycerides 89 mg/dL 40-200 Comp Metabolic Panel 12/01/2012 Albumin 4.2 g/dL 3.6-5.4 Albumin/Globulin Ratio 3.0 1-3 Alkaline Phosphatase 65 U/L 30-110 Alt 33 U/L 14-54 Anion Gap 5.0 mmol/L 2-11 Ast 26 U/L 12-42 BUN/Creatinine Ratio 2.0 Low 8-20 Blood Urea Nitrogen 2 mg/dL Low 6-24 Calcium 10.0 mg/dL High 8.1-9.9 Chloride 105 mmol/L 101-111 Co2 Carbon Dioxide 29.0 mmol/L 22-32 Creatinine 1.00 mg/dL 0.50-1.40 Egfr 74.9 >60 37 Egfr Non- 58.2 >60 Globulin 1.4 g/dL Low 2-4 Glucose 96 mg/dL 70-100 Potassium 3.9 mmol/L 3.5-5.0 Sodium 139 mmol/L 133-145 Total Bilirubin 0.6 mg/dL 0.4-1.5 Total Protein 5.6 g/dL Low 6.2-8.1 Laboratory test finding 03/07/2012 Cytology Pap See Note 38 Urine Culture & 02/25/2012 M 39 Sensitivi <See Note> Laboratory test finding 12/01/2011 TSH 0.86 MIU/ML 0.34-5.60 Vitamin D, 25 Hydroxy 10/26/2011 25-Hydroxy Vitamin D 39 ng/mL () 40 Total 25-Hydroxy Vitamin D2 <4.0 ng/mL () 25-Hydroxy Vitamin D3 39 ng/mL () Laboratory test finding 10/23/2011 Thyroid Stim Hormone 6.63 uIU/mL High 0.49-4.67 Thyroxine (T4) 8.1 g/dL 5.3-14.8 Triiodothyronine,Total 125 ng/dL 71-180 41 CBC W/Automated Diff 10/23/2011 Bas% 0.6 % 0.0-1.1 Baso # 0.03 K/uL 0.0-0.1 Eo% 7.0 % High 0.0-6.6 Eos # 0.35 K/uL 0.0-0.5 Hematocrit 40.8 % 36.0-46.1 Hemoglobin 13.3 gm/dL 11.6-15.8 Lymph # 1.21 K/uL 0.8-3.4 Lymph % 24.2 % 17.0-46.1 Mean Cell Volume 94.0 fl 80.9-99.0 Mean Corpuscular HGB 30.6 pg 25.9-32.7 Mean Corpuscular HGB Conc 32.6 g/dL 30.8-34.3 Mean Platelet Volume 9.4 fL 8.9-12.4 Hardy # 0.27 K/uL Low 0.3-0.9 Hardy % 5.4 % 4.3-13.2 Neut# 3.15 K/uL 1.0-7.0 Neut% 62.8 % 40.4-72.8 Platelet Count 239 K/uL 155-360 Red Blood Count 4.34 M/uL 3.90-5.40 Red Cell Distri Width %CV 12.9 % 11.7-14.4 Red Cell Distri Width SD 43.1 fl 3-47 White Blood Count 5.0 K/uL 3.1-10.7 Comprehensive Metabolic Panel 10/23/2011 Alb/Glob 1.2 ratio Albumin 3.8 g/dL 3.5-5.0 Alkaline Phosphatase 77 U/L 50-136 Anion Gap 11 mEq/L 8-16 BUN 13 mg/dL 5-23 BUN/Creat 13.0 ratio Bilirubin,Total 0.5 mg/dL 0.2-1.2 Calcium 9.1 mg/dL 8.5-10.1 Carbon Dioxide 30 mEq/L High 18-29 Chloride 105 mmol/L 98-107 Creatinine 1.0 mg/dL 0.5-1.4 Globulin 3.2 g/dL 1.9-4.3 Glom Filtration Rate, Estimate >60 mL/min >60 Glucose 87 mg/dL 76-115 If >60 mL/min >60 42 Potassium 4.0 mmol/L 3.5-5.1 SGPT/Alt 42 U/L 30-65 Sgot/Ast 23 U/L 16-40 Sodium 142 mmol/L 136-145 Total Protein 7.0 g/dL 6.3-8.0 LDL Cholesterol Profile 10/23/2011 Cholesterol 191 mg/dL 120-200 HDL Cholesterol 69 mg/dL 29-83 LDL-Cholesterol 92 mg/dL 62-185 Triglycerides 149 mg/dL 16-231 1 E03.9 K58.2 2 NORMALLY MENSTRUATING FEMALES: Follicular Phase:............... 2.3-12.6 mIU/mL Mid-Cycle Peak:................. 5.2-17.5 mIU/mL Luteal Phase:................... 1.7-9.5 mIU/mL POSTMENOPAUSAL FEMALES: On menopausal hormone therapy (MHT)... 5.9-72.8 mIU/mL Not on MHT ........................... 12.7-132.2 mIU/mL 3 Note: Persistent reduction for 3 months or more in an eGFR <60 mL/min/1.73 m2 defines CKD. Patients with eGFR values >/=60 mL/min/1.73 m2 may also have CKD if evidence of persistent proteinuria is present. The original MDRD equation for estimated GFR is not valid for patients less than 18 years of age. Additional information may be found at www.kdoqi.org. 4 Z12.4 Z12.4 E03.9 F31.81 M17.0 5 Note: Persistent reduction for 3 months or more in an eGFR <60 mL/min/1.73 m2 defines CKD. Patients with eGFR values >/=60 mL/min/1.73 m2 may also have CKD if evidence of persistent proteinuria is present. The original MDRD equation for estimated GFR is not valid for patients less than 18 years of age. Additional information may be found at www.kdoqi.org. 6 Values below the stated reference ranges of AST and ALT can be seen in normal populations. Clinical correlation is suggested. 7 Vitamin D deficiency has been defined by the [place] [employer] and an Endocrine Society practice guideline as a level of serum 25-OH vitamin D less than 20 ng/mL (1,2). The Endocrine Society went on to further define vitamin D insufficiency as a level between 21 and 29 ng/mL (2). 1. IOM ([place] [employer]). 2010. Dietary reference intakes for calcium and D. [place]: The National Academies Press. 2. Yeni Garcia, Otf KENNY, et al. Evaluation, treatment, and prevention of vitamin D deficiency: an Endocrine Society clinical practice guideline. JCEM. 2010; 96(7):1911-30. Performed at: [address] [id number] Safety Representative: Leticia Castellon MD, Phone: [phone] 8 B35.1 Z12.4 9 Hard copy of report to be sent by mail Report may be viewed in Clinical Review, or in PCI under Medical Record Forms 10 TP/ASCUS, rfx HPV 11 Fungus (Mycology) Culture Final report Result 1 No yeast or mold isolated after 4 weeks Performed at: [address] [id number] Safety Representative: Leticia Castellon MD, Phone: [phone] . 12 Result 1 KATIE/Calcofluor preparation: no fungus observed REFERENCE LAB#:Fungus Stain 13 Elevated levels of HbA1c suggest the need for more aggressive treatment of glycemia. The [place] Diabetes Association recommends that a primary goal of therapy should be a HbA1c of <7% and that physicians should re-evaluate the treatment regimen in patients with HbA1c values consistently >8%. 14 Vitamin D deficiency has been defined by the [place] [employer] and an Endocrine Society practice guideline as a level of serum 25-OH vitamin D less than 20 ng/mL (1,2). The Endocrine Society went on to further define vitamin D insufficiency as a level between 21 and 29 ng/mL (2). 1. IOM ([place] [employer]). 2010. Dietary reference intakes for calcium and D. [place]: The National Academies Press. 2. Yeni Garcia, Otf KENNY, et al. Evaluation, treatment, and prevention of vitamin D deficiency: an Endocrine Society clinical practice guideline. JCEM. 2010; 96(7):1911-30. Performed at: [address] [id number] Safety Representative: Leticia Castellon MD, Phone: [phone] 15 Note: Persistent reduction for 3 months or more in an eGFR <60 mL/min/1.73 m2 defines CKD. Patients with eGFR values >/=60 mL/min/1.73 m2 may also have CKD if evidence of persistent proteinuria is present. The original MDRD equation for estimated GFR is not valid for patients less than 18 years of age. Additional information may be found at www.kdoqi.org. 16 Instrument flagged sample for slide review. Less than 10% Bands seen, no other immature WBC's seen. RBC morphology essentially normal. Platelet estimate=Normal 17 Instrument flagged sample for slide review. Less than 10% Bands seen, no other immature WBC's seen. RBC morphology essentially normal. Platelet estimate= Normal 18 QUERY: Is Patient Fasting? N 19 Note: Persistent reduction for 3 months or more in an eGFR <60 mL/min/1.73 m2 defines CKD. Patients with eGFR values >/=60 mL/min/1.73 m2 may also have CKD if evidence of persistent proteinuria is present. The original MDRD equation for estimated GFR is not valid for patients less than 18 years of age. Additional information may be found at www.kdoqi.org. 20 Note: Persistent reduction for 3 months or more in an eGFR <60 mL/min/1.73 m2 defines CKD. Patients with eGFR values >/=60 mL/min/1.73 m2 may also have CKD if evidence of persistent proteinuria is present. The original MDRD equation for estimated GFR is not valid for patients less than 18 years of age. Additional information may be found at www.kdoqi.org. 21 Performed at: [facility] [id number] Safety Representative: Negro Trevino MD, Phone: [phone] 22 Note: Persistent reduction for 3 months or more in an eGFR <60 mL/min/1.73 m2 defines CKD. Patients with eGFR values >/=60 mL/min/1.73 m2 may also have CKD if evidence of persistent proteinuria is present. The original MDRD equation for estimated GFR is not valid for patients less than 18 years of age. Additional information may be found at www.kdoqi.org. 23 PLEASE FAX TO MD ARSALAN CHRISTINA AT [phone] 24 PLEASE FAX TO MD ARSALAN CHRISTINA AT [phone] 25 PLEASE FAX TO MD ARSALAN CHRISTINA AT [phone] 26 PLEASE FAX TO MD ARSALAN CHRISTINA AT [phone] QUERY: Is the Patient Fasting? Y 27 PLEASE FAX TO MD ARSALAN CHRISTINA AT [phone] 28 PLEASE FAX TO MD ARSALAN CHRISTINA AT [phone] 29 PLEASE FAX TO MD ARSALAN CHRISTINA AT [phone] 30 Cytology Laboratory [address], [address] [place] [address] CYTOLOGY REPORT Name: Lisa Grace : 1960 (Age: 53) Sex: F Location: [facility]. Rec. # [id number] Date Collected: 03/26/2014 Billing #: [id number] Date Received: 03/26/2014 Requisition # [id number] Physician(s): MARY BROWN Source of Specimen: ENDOCERVICAL/ECTOCERVICAL THIN PREP Clinical Information: Date of Last Menstrual Period: 2004 Interpretation: NEGATIVE FOR INTRAEPITHELIAL LESION OR MALIGNANCY. Specimen Adequacy: SATISFACTORY FOR EVALUATION. Additional Findings: ENDOCERVICAL/TRANSFORMATION ZONE PRESENT. mas Electronic Signature PEREZ Huddleston (ASCP) Reported: 03/28/2014 [facility] ICD-9 Code(s) V76.2 31 Cytology Laboratory [address], [address] [place] [address] CYTOLOGY REPORT Name: Lisa Graec Accession # : [id number] : 1960 (Age: 52) Sex: F Location: [facility]. Rec. # Date Collected: 03/20/2013 Billing #: [id number] Date Received: 2012 Physician(s): MARY BROWN Source of Specimen: ENDOCERVICAL/ ECTOCERVICAL THIN PREP Clinical Information: Date of Last Menstrual Period: None Provided Menstrual History: Post menopausal Specimen Adequacy: SATISFACTORY FOR EVALUATION. ADEQUATE ENDOCERVICAL/TRANSFORMATION ZONE. ABUNDANT ACUTE INFLAMMATION. General Categorization: NEGATIVE FOR INTRAEPITHELIAL LESION OR MALIGNANCY. lar Electronic Signature PEREZ Doty (ASCP) Reported: 03/23/2013 Cytology [facility] ICD-9 Code(s) V72.31 32 Because ethnic data is not always readily available, this report includes an eGFR for both -Americans and non- Americans. The National Kidney Disease Education Program (NKDEP) does not endorse the use of the MDRD equation for patients that are not between the ages of 18 and 70, are , have extremes of body size, muscle mass, or nutritional status, or are non- or non-. According to the National Kidney Foundation, irrespective of diagnosis, the stage of the disease is based on the level of kidney function: Stage Description GFR(mL/min/1.73 m(2)) 1 Kidney damage with normal or decreased GFR 90 2 Kidney damage with mild decrease in GFR 60- 89 3 Moderate decrease in GFR 30-59 4 Severe decrease in GFR 15-29 5 Kidney failure <15 (or dialysis) 33 Therapeutic target for the treatment of diabetes Mellitus patients is <7% HBA1C, and in selective patients <6.0%.Please refer to [place] Diabetes Association Diabetic care guidelines for further information. 34 RUN DATE: 12/03/12 [facility] LAB LIVE PAGE 1 RUN TIME: [address] [place] [address] Specimen Inquiry ----- Name: LISA GRACE : [address]: Nicolle RAMIREZ,Luly Solomon Acct: [id number] Unit: [id number] AGE: 52 Location: [facility] Re12/01/12 SEX: F Status: REG REF ----- SPEC: [id number] KOKO: 12/01/[address]: Nicolle RAMIREZ,Luly Solomon REQ: [id number] RECD: 12/01/12 STATUS: COMP _ SOURCE: URINE SPDESC: ORDERED: Urine Culture QUERIES: Medent Number [id number] Urine Source: Random ----- Procedure Result Verified Site ----- Urine Culture Final 12/03/12-1027 ML Organism 1 NORMAL LA [place] Count >100,000 (Many) CFU/ML ----- END OF REPORT * ML=Testing performed at Main Lab DEPARTMENT OF PATHOLOGY, [address] [place] [address] Antoni Augustine M.D. Director [facility] Permit # [id number] HDL Interpretation: Undesirable: High Risk: Less than 40 MG/DL Desirable: Low Risk: Greater than 60 MG/DL 36 LDL Interpretation: Low Risk Optimal Level: LDL Less than 100 MG/DL Near or Above Optimal: LDL 100-129 MG/DL Borderline High Risk: LDL 130-159 MG/DL High Risk : LDL 160-189 MG/DL Very High Risk: LDL Greater than 189 MG/DL 37 Because ethnic data is not always readily available, this report includes an eGFR for both -Americans and non- Americans. The National Kidney Disease Education Program (NKDEP) does not endorse the use of the MDRD equation for patients that are not between the ages of 18 and 70, are , have extremes of body size, muscle mass, or nutritional status, or are non- or non-. According to the National Kidney Foundation, irrespective of diagnosis, the stage of the disease is based on the level of kidney function: Stage Description GFR(mL/min/1.73 m(2)) 1 Kidney damage with normal or decreased GFR 90 2 Kidney damage with mild decrease in GFR 60- 89 3 Moderate decrease in GFR 30-59 4 Severe decrease in GFR 15-29 5 Kidney failure <15 (or dialysis) 38 Cytology Laboratory [address] [place] [address], [address] [place] [address] CYTOLOGY REPORT Name: Lisa Grace Accession # : [id number] : 1960 (Age: 51) Sex: F Location: [facility] Date Collected: 03/07/2012 Billing #: [id number] Date Received: 03/07/2012 Physician(s): LULY SCHAEFFER NP Source of Specimen: ENDOCERVICAL/ECTOCERVICAL THIN PREP Clinical Information: Date of Last Menstrual Period: None Provided Menstrual History: Post menopausal: 2005 Specimen Adequacy: SATISFACTORY FOR EVALUATION. ADEQUATE ENDOCERVICAL/TRANSFORMATION ZONE. ABUNDANT ACUTE INFLAMMATION. General Categorization: NEGATIVE FOR INTRAEPITHELIAL LESION OR MALIGNANCY. tfn Electronic Signature PEREZ Perdomo (ASCP) Reported: 03/08/2012 Also seen by :PEREZ Marcelo (ASCP) Cytology Out[facility] ICD-9 Code(s) V72.31 39 ------- RUN DATE: 02/27/12 [facility] NMI LIVE PAGE 1 RUN TIME: 1414 Specimen Inquiry RUN USER: INTERFACE ----- Name: LISA GRACE Status: REG REF Re Age/Sex: 51/F Unit#: [id number] Location: [facility] : 60 ----- SPEC #: [id number] KOKO: 02/25/12-1417 STATUS: COMP REQ #: [id number] RECD: 02/25/[address]: Debby RAMIREZ,Luly Solomon SOURCE: URINE ENTR: 02/25/12 -[address]: MINNIE: ORDERED: URINE C S QUERIES: MEDENT REQUISITION # [id number] SPECIMEN DESCRIPTION: URINE, RANDOM ACT WKST: UR 02/27/12 #1 ----- Procedure Result Verified Site ----- > URINE CULTURE SENSITIVI Final 02/27/12-1414 ML FINAL: NO GROWTH DAY 2 (<1,000 CFU/mL) ----- ML - [facility] Permit #[id number] [address] [place] [address] ----- DEPARTMENT OF PATHOLOGY, [address] [place] [address] [facility] Permit #[id number] Román Cary M.D. Household Refrigerator Mechanic ----- 40 -- REFERENCE VALUE -- 25-HYDROXY D TOTAL (D2+D3) Optimum levels in the normal population are 25-80 Test Performed by: [facility] Dpt of Lab Med and Pathology [address] [place] [address] Crystal Cutter: Hiren Wilson III, M.D. 41 Performed at: RN - [facility] [address] [id number] Safety Representative: Capo Carlisle MD, Phone: [phone] 42 Note: Persistent reduction for 3 months or more in an eGFR <60 mL/min/1.73 m2 defines CKD. Patients with eGFR values >/=60 mL/min/1.73 m2 may also have CKD if evidence of persistent proteinuria is present. The original MDRD equation for estimated GFR is not valid for patients less than 18 years of age. Additional information may be found at www.kdoqi.org. Procedures Date CPT Code Description Status Comment 05/12/2018 Asp./Injection major joint Completed 04/03/2018 52330 EKG-Tracing And Report Completed 02/09/201854615 Asp./Injection major joint Completed 11/09/201752431 Asp./Injection major joint Completed 11/09/2017 Asp./Injection major joint Completed 10/04/2017 Mammogram Completed 08/09/201767900 Asp./Injection major joint Completed 08/09/201768645 Asp./Injection major joint Completed 05/10/201792879 Asp./Injection major joint Completed 05/10/201795242 Asp./Injection major joint Completed 04/04/2017 07496 Bronchospasm Provocation Completed Evaluation Multi Spirometric Determinati 04/04/2017 78765 Spirometry Completed 12/21/201616173 Asp./Injection major joint Completed 12/21/201656335 Asp./Injection major joint Completed 10/07/2016 74506 Radiology, Distal Femur--Knee Completed 1 Or 2 Views 10/07/2016 13891 Radiology, Distal Femur--Knee Completed 1 Or 2 Views 10/07/2016 99973 Radiology, Both Knees Standing Completed 10/07/2016 92568 Radiology, Both Knees Standing Completed 09/21/2016 Mammogram Completed 04/22/2015 78542 Psychiatric Diag Eval Completed W/Medical Service 12/26/2014 78421 EKG-Tracing And Report Completed 03/26/2013 Bone Mineral Density Test Completed 09/18/2010 27748 Colonoscopy Completed Document: 09/18/10 - Colon Screening 09/18/2010 Colonoscopy Completed 03/05/2010 76206 Echocardiogram Complete Completed 11/24/2009 35129 Pulse Oximetry Completed 12/20/2007 60201 Exc.Darrel.Lesion/0.6 To 1.0 cm Completed 11/13/2001 69963 Destruct-Skin Completed Tags/Lesions-Local Anesthesia- 2-14 Lesions 11/13/2001 14978 Destruct-Skin Completed Tags/Lesions-Local Anesthesia - First Lesion Encounters Type Date Location Provider CPT E/M Dx Office Visit 05/25/2018 3:30p [place] [address] J45.20 J30.89 R09.02 E66.8 Office Visit 04/03/2018 2:30p [place] [address] Z01.810 Office Visit 12/01/2017 1:45p Primary Care Office Mary Euceda, 40358 E03.9 RPAC K58.2 Office Visit 10/19/2017 2:20p Primary Care Office Kaylin Marcelo M.D. 65877 J01.90 J20.9 Z79.899 Office Visit 05/30/2017 1:00p Primary Care Office Mary Euceda, 27958 Z00.00 RPA Z12.4 F31.81 E03.9 M17.0 C50.911 Z23 Office Visit 05/23/2017 3:30[place] [address] J45.20 J98.6 J30.89 Office Visit 04/19/2017 2:00p [place] [address] J45.20 J98.6 J30.89 K21.9 Office Visit 04/05/2017 3:00p Orthopaedic Office Kezia Vela, 20351 M17.0 [facility] Office Visit 03/25/2017 11:40a Primary Care Office Kaylin Marcelo M.D. 42655 J20.9 R05 J45.901 Office Visit 03/18/2017 2:00p Primary Care Office Kaylin Marcelo M.D. 87417 D49.2 Office Visit 01/31/2017 3:30p Orthopaedic Office Kezia Vela, 20135 M17.0 RPAC Office Visit 11/04/2016 3:00p Orthopaedic Office Kezia Vela, 81342 M17.0 RPAC Office Visit 10/07/2016 11:00a Orthopaedic Office Kezia Vela, 41348 M25.561 RPA M25.562 M17.0 Office Visit 10/05/2016 2:15p Primary Care Office [place], [address]30 M25.562 [facility] M25.561 Office Visit 04/26/2016 3:30[place] [address] F31.81 E66.9 Office Visit 04/13/2016 1:00p Primary Care Office Mary Euceda, 31394 Z00.00 [facility] Z12.4 Z12.31 B35.1 Office Visit 04/01/2016 10:15a Primary Care Office [place], [address] R42 RPA Office Visit 01/21/2016 2:20p Psych Abdiel Valentino, 52171 F31.81 Office Visit 10/27/2015 3:05p Abdiel Medel, 67939 F31.81 E66.9 Office Visit 09/24/2015 1:45p Primary Care Office Mary Euceda [facility] 74551 R05 B35.9 R60.0 Office Visit 07/28/2015 3:30[place] [address] F31.81 E66.9 Office Visit 05/28/2015 3:05p Abdiel Medel 97829 F31.81 Office Visit 04/09/2015 1:00p Primary Care Office Mary Euceda, 82505 V72.31 [facility] V76.2 493.90 293.83 278.00 174.9 Office Visit 12/26/2014 1:00p Family Medicine Mary Euceda, [facility] [address]04 174.9 493.92 296.80 V72.83 Plan of Care Future Appointment(s):06/21/2019 1:00 pm - Mary Euceda [facility] at Primary Care Zdisua4605/24/2019 4:00 pm - Ross Olmos MD at Ouoqryltidu89/14/2018 2: 15 pm - Kezia Vela [facility] at Orthopaedic Fkjicr5606/20/2018 - [facility] for general adult medical exam w/o abnormal czhxckykF47.20 Mild intermittent asthma, uncomplicatedComments:Current medication(s): Dulera 200 BID, ProAir Respiclick prn Receiving [id number] Encounter for immunizationComments:Seasonal influenza vaccine given today.G47.33 Obstructive sleep apnea (adult) (pediatric)Comments: Cpap with O2F31.9 Bipolar disorder, unspecifiedComments:Current medication(s): Spencer, Bupropion, Trint[place]ix[place] Terri Dmytryk NPM17.9 Osteoarthritis of knee, unspecifiedComments:Current tx with AqixsroqL64.42 Body mass index (BMI) 45.0-49.9, adultComments:Bariatric evaluation ongoing.
[2018-06-30 10:34] VITALS: BP 155/94
--- NOTE | 2018-06-30 10:49 | UC ---
UC General HPI - HPI Summary HPI Summary: 3 DAYS AGO, PT ROUSED WITH PAIN IN HER R JAW, HINDUISM AND FACE PLUS THAT SKIN FEELS TINGLY. PT NOTES AREA OVER HINDUISM IS MILDLY TENDER TO TOUCH WELL. THIS AM, HAS HAD SOME NAUSEA WITH VOMITING X2. CURRENT KENNY IS 6/10 BUT WAS 8/10 AT WORST. ALSO NOTES BOUTS OF FLEETING SHARP R FACIAL PAINS. SELF TX WITH 2 ALEVE GEL CAPS AND AN ANTIHISTAMINE THIS AM. DENIES ANY ASSOCIATED FEVER, INJURY, CHANGE IN VISION AND SPEECH. NO FOCAL NUMBNESS OR WEAKNESS. - History of Current Complaint Chief Complaint: UCGeneralIllness Stated Complaint: SINUSES Time Seen by Provider: 06/30/18 10:28 Hx Obtained From: Patient Pain Intensity: 6 Alleviating: NOTHING Associated Signs & Symptoms: Negative: Cough, Chest Pain, Dizziness, Fever, Weakness - Allergy/Home Medications Allergies/Adverse Reactions: Allergies Allergy/AdvReac Type Severity Reaction Status Date / Time docetaxel [From Taxotere] Allergy Swelling Verified 06/30/18 10:24 Home Medications: Home Medications LevoCETirizine TAB (NF) [Xyzal TAB (NF)] 5 mg PO DAILY 06/30/18 [History Confirmed 06/30/18] Mometasone Furoate [Nasonex] 1 spray BOTH NARES DAILY 06/30/18 [History Confirmed 06/30/18] Naproxen [Naproxen 500 mg tab] 500 mg PO BID 06/30/18 [History Confirmed ] Vortioxetine Hydrobromide [Trintellix] 20 mg PO DAILY 06/30/18 [History Confirmed 06/30/18] PMH/Surg Hx/FS Hx/Imm Hx - Additional Past Medical History Additional PMH: OA, BREAST CA, ALLERGIES - Surgical History Surgical History: Yes Surgery Procedure, Year, and Place: Right Breast Lumpectomy, 2005. RIGHT BREAST MASTECTOMY. Cholecystectomy - Family History Known Family History: Positive: None - Social History Occupation: Employed Full-time Alcohol Use: Occasionally Substance Use Type: None Smoking Status (MU): Never Smoked Tobacco - Immunization History Vaccination Up to Date: Yes Review of Systems Constitutional: Negative Skin: Negative Eyes: Negative ENT: Negative Respiratory: Negative Cardiovascular: Negative Gastrointestinal: Vomiting, Nausea Genitourinary: Negative Motor: Negative Neurovascular: Other - TINGLING AND EPISODIC SHARP R FACIAL PAINS Musculoskeletal: Negative Neurological: Headache Psychological: Negative Is Patient Immunocompromised?: No All Other Systems Reviewed And Are Negative: Yes Physical Exam Triage Information Reviewed: Yes Appearance: Well-Appearing Vital Signs: Initial Vital Signs Temp 98.1 F 06/30/18 10:19 Pulse 76 06/30/18 10:19 Resp 19 06/30/18 10:19 BP 155/94 06/30/18 10:19 Pulse Ox 98 06/30/18 10:19 Vital Signs Reviewed: Yes Eyes: Positive: Conjunctiva Clear, Other: - PERRL, EOMI. ENT: Positive: TMs normal, Other - R SOFT PALATE WITH VESICLES. Negative: Nasal congestion, Nasal drainage Neck: Positive: Supple, Nontender, No Lymphadenopathy Respiratory: Positive: Lungs clear, Normal breath sounds Cardiovascular: Positive: RRR, No Murmur Abdomen Description: Positive: Nontender, No Organomegaly, Soft Bowel Sounds: Positive: Present Musculoskeletal: Positive: ROM Intact, Other: - R TMJ NON TENDER Neurological: Positive: Other: - A&O X3. CN 2-12 GROSSLY INTACT. SENSATION INTACT X4. 5/5 STRENGTH AND 2+ REFLEXES X4. STEADY GAIT. +/- R HINDUISM TENDERNESS BUT NO CORDS. Psychological: Positive: Age Appropriate Behavior Skin Exam: Normal Skin: Positive: rashes - PETECHIAL SPOTS TO FACE, MOST CONCENTRATED TO PERIORBITS BUT ADDITIONAL GENERALIZED PETECHIAL SPOTS NOTED. Course/Dx - Course Course Of Treatment: 11:20 [facility] ER CALLED, REPORT GIVEN TO DR REYES OF 3 DAY R FACIAL, TEMPORAL KENNY, N/V, PETECHIAL RASH AND VESICULAR RASH PALATE. PT DECLINED EMS TRANSFER CITING WILL DRIVE SELF TO ER. - Differential Dx - Multi-Symptom Differential Diagnoses: Other - TRIGEMINAL NEURALGIA, TEMPORAL ARTERITIS, COAGULOPATHY, SHINGLES, INTRACRANIAL PATHOLOGY. Provider Diagnoses: ACUTE R TEMPORAL-FACIAL PAIN, HEADACHE, NAUSEA WITH VOMITING , PETECHIAL RASH, VESICULAR RASH R SOFT PALATE. Discharge - Sign-Out/Discharge Documenting (check all that apply): Patient Departure All imaging exams completed and their final reports reviewed: No Studies - Discharge Plan Condition: Stable Disposition: TRANS HIGHER L OF CARE FAC Referrals: Sharifa Euceda PA [Primary Care Provider] - Additional Instructions: ACUTE R TEMPORAL-FACIAL PAIN. HEADACHE. VOMITING. PETECHIAL RASH. VESICLES R SOFT PALATE LEAVE HERE AND GO DIRECTLY TO THE [facility] DISCUSSED. - Billing Disposition and Condition Condition: STABLE Disposition: Trans Higher Lvl of Care Fac
== END 2018-06-30 11:22 | disposition short-term general hospital (02) ==
LOC: UCCORT 09:20
DX: R68.84 Jaw pain (principal); R51 Headache; R11.2 Nausea with vomiting, unspecified; R21 Rash and other nonspecific skin eruption
CPT/HCPCS: 99202; G0463

== ENCOUNTER 2021-05-08 10:00 | Inpatient (IN) ==
[~2021-05-08 10:00] MED LIST: Buffered Lidocaine 1% SYRIN 1 ml INTRADERM ONE; Famotidine IV 10 MG/ML 2 ml VIAL (20 mg) IV ONE; Famotidine IV 10 MG/ML 2 ml VIAL (20 mg) ONE; Lactated Ringers 1000 ml BAG 1,000 ML IV SCH; ceFAZolin 1 GM ADVAN 1 GM ADDV.VIAL IVPB ONE; ceFAZolin 2 GM in NS PREMIX 2 GM/100 ML BAG IVPB ONE
[2021-05-08] MEDS ORDERED: ROPIVACAINE 5 MG/ML 30 ML BTL (0.5%) ONE ×3 (12:29→13:21)
[2021-05-08] MEDS ORDERED: Midazolam 5 mg/5 ml VIAL 1 mg/ml 5 ml VIAL (5 mg) ONE (12:52)
[2021-05-08] MEDS ORDERED: fentaNYL 100 mcg/2 ml 50 MCG/ML VIAL ONE (12:52)
[2021-05-08] MEDS ORDERED: Dexamethasone IV 4 MG/ML VIAL 1 ml VIAL ONE (12:52)
[2021-05-08] MEDS ORDERED: Propofol 10 mg/ml 100 ML BTL 0 ML ONE (13:37)
[2021-05-08] MEDS ORDERED: Propofol 10 MG/ML 20 ML BTL ONE ×2 (13:38→16:11)
[2021-05-08] MEDS ORDERED: Ondansetron 4 mg VIAL 2 MG/ML 2 ml VIAL ONE (14:48)
[2021-05-08] MEDS ORDERED: Metoclopramide 5 MG/ML VIAL (10 mg) ONE (14:48)
[2021-05-08] MEDS ORDERED: Ondansetron ODT 4 mg TAB 4 MG TAB PO PRN (14:49)
[2021-05-08] MEDS ORDERED: Morphine 2 MG/ML SYRINGE IV PRN (14:49)
[2021-05-08] MEDS ORDERED: Lactulose 30 ml UDC PO PRN (14:49)
[2021-05-08] MEDS ORDERED: Ondansetron 4 mg VIAL 2 MG/ML 2 ml VIAL IV PRN ×2 (14:49→14:52)
[2021-05-08] MEDS ORDERED: Magnesium Hydroxide LIQ 30 ML UDC PO PRN (14:49)
[2021-05-08] MEDS ORDERED: diPHENhydraMINE IV 50 MG/ML 1 ml VIAL (BENADRYL) IV PRN ×2 (14:49→14:52)
[2021-05-08] MEDS ORDERED: diPHENhydraMINE 25 mg TAB PO PRN (14:49)
[2021-05-08] MEDS ORDERED: HYDROcodone/ACETAMIN 5/325 mg TAB PO PRN (14:52)
[2021-05-08] MEDS ORDERED: Naloxone 0.4 mg VIAL 0.4 mg/ml 1 ml VIAL IV PRN (14:52)
[2021-05-08] MEDS ORDERED: Metoclopramide 5 MG/ML VIAL (10 mg) IV PRN (14:52)
[2021-05-08] MEDS ORDERED: Lidocaine 2% PF 5 ML VIAL ONE (15:14)
[2021-05-08] MEDS ORDERED: HYDROcodone/ACETAMIN 5/325 mg TAB ONE (16:31)
[2021-05-08] MEDS ORDERED: Albuterol HFA INHALER 8 gm MDI INH PRN (17:00)
[2021-05-08] MEDS: Lactated Ringers 1000 ml BAG 1,000 ML IV SCH (18:11)
[2021-05-08] MEDS: Mometasone/Formoter 100/5 MDI INH SCH (20:22)
[2021-05-08] MEDS ORDERED: Lithium Carbonate ER 450mg TAB PO SCH (21:00)
[2021-05-08] MEDS: Magnesium Hydroxide LIQ 30 ML UDC PO SCH (22:00)
[2021-05-08] MEDS: ceFAZolin 1 GM ADVAN 1 GM in NS 0.9% 50 ML 50 ML IVPB SCH (22:30)
[2021-05-09] MEDS: Lactated Ringers 1000 ml BAG 1,000 ML IV SCH (03:28)
[2021-05-09 06:15] LABS: Hematocrit 32 % (35-47); Hemoglobin 10.8 g/dL (12.0-16.0); Mean Platelet Volume 7.7 fL (7.4-10.4); Platelet Count 166 10^3/uL (150-450)
[2021-05-09] MEDS: ceFAZolin 1 GM ADVAN 1 GM in NS 0.9% 50 ML 50 ML IVPB SCH ×2 (06:28→13:07)
[2021-05-09 06:36] LABS: Calcium 8.9 mg/dL (8.6-10.3); EGFR Non-African American 71.1 (>60); Potassium 4.4 mmol/L (3.5-5.0)
[2021-05-09 08:07] VITALS: BP 113/79
[2021-05-09] MEDS ORDERED: Vitamin THERAPEUTIC TAB PO SCH (09:00)
[2021-05-09] MEDS ORDERED: CMCS:Lithium Carb ER 300 mg TAB(NF) PO SCH (09:00)
[2021-05-09] MEDS: BREXPIPRAZOLE 2 MG PO SCH ×2 (09:29→09:45)
[2021-05-09] MEDS: Magnesium Hydroxide LIQ 30 ML UDC PO SCH (09:35)
[2021-05-09] MEDS: Mometasone/Formoter 100/5 MDI INH SCH (09:41)
[2021-05-09] MEDS ORDERED: Fluticasone NASAL SPRAY 50MCG 16 gm SPRAY BTL BOTH NARES SCH (10:30)
[2021-05-09] MEDS ORDERED: SPIRIVA Respimat (tiotropium) 2.5 mcg/inh Inhaler INH SCH (10:30)
[2021-05-11] MEDS ORDERED: Scopolamine PATCH Remove NOTE PATCH OFF ONE (06:00)
== END 2021-05-09 13:35 | disposition home or self-care (01) | DRG 302 ==
LOC: AA 10:00 → SSU 17:50
PROVIDERS: ADMIT Orthopaedic Surgery Adult Reconstructive Orthopaedic Surgery; ATTEND Orthopaedic Surgery Adult Reconstructive Orthopaedic Surgery

== ENCOUNTER 2021-12-01 07:19 | Observation (INO) ==
[~2021-12-01 07:19] MED LIST changes: -Famotidine IV 10 MG/ML 2 ml VIAL (20 mg) IV ONE; -Famotidine IV 10 MG/ML 2 ml VIAL (20 mg) ONE; -ceFAZolin 1 GM ADVAN 1 GM ADDV.VIAL IVPB ONE
[2021-12-01] MEDS ORDERED: Lidocaine 2% PF 5 ML VIAL ONE (07:45)
[2021-12-01] MEDS ORDERED: fentaNYL 100 mcg/2 ml 50 MCG/ML VIAL ONE (07:45)
[2021-12-01] MEDS ORDERED: Midazolam 2 mg/2 ml VIAL 1 mg/ml 2 ml VIAL (2 mg) ONE (07:45)
[2021-12-01] MEDS ORDERED: Dexamethasone IV 4 MG/ML VIAL 1 ml VIAL ONE ×2 (07:45→09:56)
[2021-12-01] MEDS ORDERED: Propofol 10 MG/ML 20 ML BTL ONE ×2 (07:45→11:27)
[2021-12-01] MEDS ORDERED: Ondansetron 4 mg VIAL 2 MG/ML 2 ml VIAL ONE ×2 (07:45→09:56)
[2021-12-01] MEDS ORDERED: Phenylephrine IV 10 MG/ML 1 ml VIAL ONE (07:46)
[2021-12-01] MEDS ORDERED: ROPIVACAINE 5 MG/ML 30 ML BTL (0.5%) ONE (08:56)
[2021-12-01] MEDS ORDERED: Ropivacaine 5 MG/ML 20 ML VIAL 0.5% (100 MG) ONE (09:00)
[2021-12-01] MEDS ORDERED: diPHENhydraMINE IV 50 MG/ML 1 ml VIAL (BENADRYL) IV PRN ×2 (10:12→10:56)
[2021-12-01] MEDS ORDERED: Naloxone 0.4 mg VIAL 0.4 mg/ml 1 ml VIAL IV PRN (10:12)
[2021-12-01] MEDS ORDERED: HYDROmorphone 1 MG/1 ML SYRINGE IV PRN (10:12)
[2021-12-01] MEDS ORDERED: Prochlorperazine 5 mg/ml 2 ml VIAL (10 mg) IV PRN (10:12)
[2021-12-01] MEDS ORDERED: Magnesium Hydroxide LIQ 30 ML UDC PO PRN (10:56)
[2021-12-01] MEDS ORDERED: Ondansetron 4 mg VIAL 2 MG/ML 2 ml VIAL IV PRN (10:56)
[2021-12-01] MEDS ORDERED: Ondansetron ODT 4 mg TAB 4 MG TAB PO PRN (10:56)
[2021-12-01] MEDS ORDERED: Lactulose 30 ml UDC PO PRN (10:56)
[2021-12-01] MEDS ORDERED: Morphine 2 MG/ML SYRINGE IV PRN (10:56)
[2021-12-01] MEDS ORDERED: diPHENhydraMINE 25 mg TAB PO PRN (10:56)
[2021-12-01] MEDS ORDERED: ceFAZolin 1 GM ADVAN 1 GM in NS 0.9% 50 ML 50 ML IVPB SCH (11:00)
[2021-12-01] MEDS ORDERED: Albuterol HFA INHALER 8 gm MDI INH PRN (11:08)
[2021-12-01] MEDS: Lactated Ringers 1000 ml BAG 1,000 ML IV SCH (13:56)
[2021-12-01] MEDS: ceFAZolin VIAL 1 GM in NS 0.9% 50 ML 50 ML IVPB SCH (18:31)
[2021-12-01] MEDS: Mometasone/Formoter 100/5 MDI INH SCH (19:24)
[2021-12-01] MEDS ORDERED: Lithium Carbonate ER 450mg TAB PO SCH (21:00)
[2021-12-01] MEDS: Magnesium Hydroxide LIQ 30 ML UDC PO SCH (22:02)
[2021-12-02] MEDS: Lactated Ringers 1000 ml BAG 1,000 ML IV SCH (00:37)
[2021-12-02] MEDS: [UNRECOGNIZED DRUG - OTHER] TOPICAL SCH ×2 (00:57→09:16)
[2021-12-02] MEDS: FLUOCINONIDE TOPICAL SCH ×2 (00:57→09:16)
[2021-12-02] MEDS: ceFAZolin VIAL 1 GM in NS 0.9% 50 ML 50 ML IVPB SCH ×2 (02:32→09:46)
[2021-12-02 06:00] LABS: Hematocrit 33 % (35-47); Mean Platelet Volume 7.4 fL (7.4-10.4); Platelet Count 180 10^3/uL (150-450)
[2021-12-02 06:14] LABS: Potassium 4.1 mmol/L (3.5-5.0)
[2021-12-02 06:20] LABS: eGFR CKD-EPI 65.7 (>60)
[2021-12-02] MEDS: Mometasone/Formoter 100/5 MDI INH SCH (08:50)
[2021-12-02] MEDS ORDERED: BREXPIPRAZOLE 3 MG PO SCH (09:00)
[2021-12-02] MEDS ORDERED: Fluticasone NASAL SPRAY 50MCG 16 gm SPRAY BTL BOTH NARES SCH (09:00)
[2021-12-02] MEDS ORDERED: SPIRIVA Respimat (tiotropium) 2.5 mcg/inh Inhaler INH SCH (09:00)
[2021-12-02] MEDS ORDERED: CMCS: Lithium Carb ER 300 mg TAB(NF) PO SCH (09:00)
[2021-12-02] MEDS ORDERED: Vitamin THERAPEUTIC TAB PO SCH (09:00)
[2021-12-02] MEDS: Magnesium Hydroxide LIQ 30 ML UDC PO SCH (09:11)
[2021-12-02 11:10] VITALS: BP 117/68
== END 2021-12-02 14:00 | disposition home or self-care (01) ==
LOC: OR 07:19 → EDSTATUS 09:45 → SSU 13:28 → INTOOBSV 13:28
PROVIDERS: ADMIT Orthopaedic Surgery Adult Reconstructive Orthopaedic Surgery; ATTEND Orthopaedic Surgery Adult Reconstructive Orthopaedic Surgery